=== PATIENT | female | born 1970 | race Caucasian/White ===

== ENCOUNTER 2021-09-16 09:27 | Day surgery (SDC) | payer BC ==
[~2021-09-16] VITALS: Ht 160 cm; Wt 67.1 kg
[2021-09-16] MEDS ORDERED: COZAAR 50MG50 MG/TAB PO (09:48)
[2021-09-16 10:12] VITALS: BP 114/76; PULSE 77; TEMP 98
[2021-09-16 11:10] VITALS: BP 120/81; PULSE 82; TEMP 96.1
[2021-09-16 11:25] VITALS: BP 113/91; PULSE 62
[2021-09-16 11:40] VITALS: BP 141/87; PULSE 74
--- NOTE | 2021-09-16 12:15 | NUR ---
1110 PT RETURNED TO [facility] VIA CART, 2 RN ASSIST TRANSFER TO CHAIR. MONITORS ATTACHED, INTERVALS AND ALARMS SET. ALERT AND ORIENTED. DR. RACHEL IN PRIVIOUS TO PT RETURN TO SPEAK WITH . DIET SODA AND TOAST PROVIDED. CALL LIGHT IN REACH, AT BEDSIDE. 1125 VSS. TOLERATING FOOD AND DRINK WELL. DENIES ANY DISCOMFORT. 1140 VSS. ENCOURAGED PT TO MONITOR BP AT HOME AND TAKE BP MEDICATIONS SCHEDULED. REVIEWED DISCHARGE INSTRUCTIONS AND EDUCATION MATERIAL, ANSWERED ALL QUESTIONS. D/C IV WITHOUT COMPLICATIONS. PT ALLOWED TO DRESS. 1215 TRANSFERED PT VIA WHEELCHAIR TO PERSONAL VEHICLE TO BE DRIVEN HOME BY .
== END 2021-09-16 12:15 | disposition home or self-care (01) ==
LOC: SDCO 09:27
DX: Z12.11 Encounter for screening for malignant neoplasm of colon (principal); K62.1 Rectal polyp; J06.9 Acute upper respiratory infection, unspecified; J02.9 Acute pharyngitis, unspecified; Z85.828 Personal history of other malignant neoplasm of skin
CPT/HCPCS: J2704; J7030